=== PATIENT | female | born 1945 | race Caucasian/White ===

== ENCOUNTER 2023-09-26 13:04 | Emergency (ER) | payer MEDICARE, SELFPAY ==
[2023-09-26 13:18] VITALS: BP 152/65; PULSE 89; RESP 18; TEMP 37.1; O2SAT 98; BMI 18.0
--- NOTE | 2023-09-26 13:31 | DI.RAD.S_ITS ---
PROCEDURE: XR CHEST 2V INDICATIONS: Cough positive covid, lung ca TECHNIQUE: 2 views of the chest were acquired. COMPARISON: None. FINDINGS: Surgical changes and devices: None. Lungs and pleura: Focal opacity within the posterior right upper lobe measuring 2.8 centimeters with a masslike appearance. No pleural effusions or pneumothorax. Mediastinum: Mediastinal contours are normal. Heart size is normal. Bones and chest wall: No suspicious bony abnormalities. Soft tissues appear unremarkable. IMPRESSION: Focal right apical opacity concerning for lung mass. Recommend correlation for site of reported lung cancer. Lungs are otherwise clear. Dictated by: Lai Jara M.D. on 09/26/2023 at 13:21 Approved by: Lai Jara M.D. on 09/26/2023 at 13:23
[2023-09-26 13:44] LABS: COVID19 -Nasal RAPID POSITIVE (Negative)
--- NOTE | 2023-09-26 16:17 | ED_ITS ---
HPI - URI/Sore Throat <Nithya Donald PA-C - Last Filed: 09/26/23 20:20> General Chief Complaint: Upper Respiratory Symptoms Stated Complaint: positive covid test, fever and cough Time Seen by Provider: 09/26/23 15:32 Source: patient Mode of arrival: Ambulatory History of Present Illness HPI Narrative: Patient is an 78-year-old female with lung cancer noted on 09/10, atrial fibrillation and chronic anticoagulation presenting for evaluation after testing positive for COVID today. She states her symptoms started yesterday with some nasal congestion headache, slight sore throat. She denies wheezing or di fficulty breathing. She does note some chest discomfort while coughing. She wanted to make sure that the COVID was not in her lungs. She states that she feels quite fatigued and wanting to sleep. She denies any history of kidney issues and states that she had blood work done 3 weeks ago due to her recent workup regarding her recent lung cancer diagnosis. She reports that she has been previously vaccinated for COVID. She notes she does take Eliquis 10mg daily. Related Data Allergies Allergy/AdvReac Type Severity Reaction Status Date / Time acetaminophen [From Tylenol] Allergy Verified 09/26/23 14:05 adhesive Allergy Verified 09/26/23 14:05 benzoin Allergy Verified 09/26/23 14:05 diazepam [From Valium] Allergy Verified 09/26/23 14:05 doxycycline Allergy Verified 09/26/23 14:05 erythromycin base Allergy Verified 09/26/23 14:05 fentanyl Allergy Verified 09/26/23 14:05 hexachlorophene Allergy Verified 09/26/23 14:05 [From Phisohex] latex Allergy Verified 09/26/23 14:05 lidocaine Allergy Verified 09/26/23 14:05 meperidine [From Demerol] Allergy Verified 09/26/23 14:05 mepivacaine [From Carbocaine] Allergy Verified 09/26/23 14:05 morphine Allergy Verified 09/26/23 14:05 naltrexone Allergy Verified 09/26/23 14:05 NSAIDS (Non-Steroidal Allergy Verified 09/26/23 14:05 Anti-Inflamma oxycodone Allergy Verified 09/26/23 14:05 Penicillins Allergy Verified 09/26/23 14:05 propoxyphene Allergy Verified 09/26/23 14:05 [From Darvocet-N 100] Sulfa (Sulfonamide Allergy Verified 09/26/23 14:05 Antibiotics) tramadol Allergy Verified 09/26/23 14:05 procaine [From Novocain] AdvReac Verified 09/26/23 14:05 Review of Systems <Nithya Donald PA-C - Last Filed: 09/26/23 20:20> Review of Systems Narrative: See HPI Patient History <Nithya Donald PA-C - Last Filed: 09/26/23 20:20> Social History Smoking Status: Never smoker Smoking Status: Never smoker Alcohol type: beer Substance Use Type: does not use Exam <Nithya Donald PA-C - Last Filed: 09/26/23 20:20> Initial Vital Signs Initial Vital Signs: Vital Signs Temperature 98.8 F 09/26/23 13:18 Pulse Rate 89 09/26/23 13:18 Respiratory Rate 18 09/26/23 13:18 Blood Pressure 152/65 H 09/26/23 13:18 Pulse Oximetry 98 09/26/23 13:18 Oxygen Delivery Method Room Air 09/26/23 13:18 GENERAL: 78 year old patient appears stated age. Well-developed patient, in no acute distress. HEAD: Atraumatic. Normocephalic. EYES: Pupils equal round and reactive. No scleral icterus. No injection or drainage. ENT: Nose without bleeding, purulent drainage. Throat without erythema, tonsillar hypertrophy or exudate. Airway patent. NECK: Trachea midline. Non tender. CARDIOVASCULAR: irregularly irregular rate and rhythm without murmurs, gallops, or rubs. RESPIRATORY: Clear to auscultation. Breath sounds equal bilaterally. No wheezes, rales, or rhonchi. NEURO: AOx3. SKIN: No rash or erythema of visible areas <Willow Escoto DO - Last Filed: 10/03/23 08:13> Initial Vital Signs Initial Vital Signs: Vital Signs Temperature 98.8 F 09/26/23 13:18 Pulse Rate 89 09/26/23 13:18 Respiratory Rate 18 09/26/23 13:18 Blood Pressure 152/65 H 09/26/23 13:18 Pulse Oximetry 98 09/26/23 13:18 Oxygen Delivery Method Room Air 09/26/23 13:18 Course <Nithya Donald PA-C - Last Filed: 09/26/23 20:20> Orders Ordered: ED Orders 09/26/23 13:31 XR chest 2V Stat 09/26/23 13:37 COVID19 -Nasal RAPID Stat Vital Signs Vital signs: Vital Signs - 8 hr 09/26/23 13:18 09/26/23 16:43 Temperature 98.8 F Pulse Rate 89 92 H Respiratory Rate 18 18 Blood Pressure 152/65 H Pulse Oximetry 98 99 Oxygen Delivery Method Room Air Room Air <Willow Escoto DO - Last Filed: 10/03/23 08:13> Orders Ordered: ED Orders 09/26/23 13:31 XR chest 2V Stat 09/26/23 13:37 COVID19 -Nasal RAPID Stat Vital Signs Vital signs: Vital Signs - 8 hr 09/26/23 13:18 09/26/23 16:43 Temperature 98.8 F Pulse Rate 89 92 H Respiratory Rate 18 18 Blood Pressure 152/65 H Pulse Oximetry 98 99 Oxygen Delivery Method Room Air Room Air MDM - URI/Sore Throat <Nithya Donald PA-C - Last Filed: 09/26/23 20:20> Lab Data Labs: Lab Results 09/26/23 Range/Units 13:37 SARS-CoV-2 (PCR) Positive H (Negative) Imaging Data Chest x-ray: Radiologist's Impression: PROCEDURE: XR CHEST 2V INDICATIONS: Cough positive covid, lung ca TECHNIQUE: 2 views of the chest were acquired. COMPARISON: None. FINDINGS: Surgical changes and devices: None. Lungs and pleura: Focal opacity within the posterior right upper lobe measuring 2.8 centimeters with a masslike appearance. No pleural effusions or pneumothorax. Mediastinum: Mediastinal contours are normal. Heart size is normal. Bones and chest wall: No suspicious bony abnormalities. Soft tissues appear unremarkable. IMPRESSION: Focal right apical opacity concerning for lung mass. Recommend correlation for site of reported lung cancer. Lungs are otherwise clear. Dictated by: Lai Jara M.D. on 09/26/2023 at 13:21 Approved by: Lai Jara M.D. on 09/26/2023 at 13:23 [facility] Narrative Medical decision making narrative: Patient is an 78-year-old female presenting for evaluation of upper respiratory infectious symptoms. She tested positive for COVID this morning with symptoms starting yesterday. She reports she is been fully immunized. Of note, she does have recent diagnosis of lung cancer. She denies any chronic kidney disease. She does take Eliquis for atrial fibrillation. She denied shortness of breath or on and off chest pain. Since she is taking Eliquis daily for her atrial fibrillation, discussed that it would be best if she follow up with her oncologist regarding whether she should take Paxlovid. She appears stable in the the ED today. Discussed CDC quarantine guidelines and monitoring for shortness of breath, chest pain and returned to the ED if she should develop worsening symptoms overall. Recommend she treat with fever reducers, cold medicines it, rest and increase fluids. Reassured patient that chest x-ray did not show any evidence of pneumonia. Chest x-ray does show evidence of mass which patient is already aware of. Multiple etiologies for patient's symptoms considered including, but not limited to: Lung cancer, COVID, flu, RSV, pneumonia Findings and discharge diagnosis discussed with patient/family followed by verbalization of understanding Return precautions discussed with patient/family whom verbalize understanding of diagnosis and plan <Willow Escoto, DO - Last Filed: 10/03/23 08:13> Lab Data Labs: Lab Results 09/26/23 Range/Units 13:37 SARS-CoV-2 (PCR) Positive H (Negative) Discharge Plan Departure Patient Disposition: Home Clinical Impression: COVID-19 Instructions: COVID-19 Activity Restrictions/Additional Instructions: Thank you for coming in today for your care. Review of your physical exam, chest x-ray and vital signs show no evidence of pneumonia from COVID at this time. We discussed pros and cons and side effects of Paxlovid. Since you are taking 10 mg of Eliquis, recommend that you further discuss this with your oncologist tomorrow due to risks of reducing Eliquis dosage and your current diagnosis of lung cancer. I recommend continued supportive care today with Tyleno0,l ibuprofen as needed in addition to increase fluids and monitoring O2 sats. If O2 should dipped below 93, or if you develop worsening overall symptoms and debilitating fatigue. I recommend further follow up in the emergency department. I recommend CDC guidelines to quarantine for 5 days from symptom onset then if feeling better, you may go into the community with a mask for the next 5 days. Referrals: Miscellaneous,Doctor, [Primary Care Provider] - Stand Alone Forms: Patient Portal/API ED Sign-out <Willow Escoto DO - Last Filed: 10/03/23 08:13> Cosign ED Attending Radha Attestation: I was immediately available in the department for consultation. Documentation has been reviewed. Case was discussed. Patient overall well-appearing. They had asked about taking Paxlovid, to have lung cancer but are also on medications that would have to be adjusted or stopped secondary to medication in her reactions. After discussion felt appropriate to discharge home but can give referral back to their oncology team to order Paxlovid if they feel appropriate and patient provided with all labs that would be needed.
[2023-09-26 16:43] VITALS: PULSE 92; RESP 18; O2SAT 99
== END 2023-09-26 16:44 | disposition home or self-care (01) ==
PROVIDERS: Emergency Medicine; Emergency Provider Physician Assistant
DX: U07.1 COVID-19 (principal)
CPT/HCPCS: 71046; 87635; 99281; 99283; C9803